=== PATIENT | male | born 1985 | race Caucasian/White ===

== ENCOUNTER 2019-02-17 08:42 | Emergency (ER) | payer MEDICAID ==
[~2019-02-17] VITALS: Ht 182.9 cm; Wt 79.4 kg
--- NOTE | 2019-02-17 08:53 | NUR ---
DR. ANDERSON AT BEDSIDE FOR EVAL.
--- NOTE | 2019-02-17 08:55 | NUR ---
RT AT BEDSIDE.
[2019-02-17] MEDS ORDERED: ALBUTEROL FS 2.5 MG/0.5 ML VIAL.NEB ONE ×2 (08:57→09:27)
[2019-02-17] MEDS ORDERED: ALBUTEROL FS 2.5 MG/0.5 ML VIAL.NEB NEB ONE ×2 (09:00→10:00)
--- NOTE | 2019-02-17 09:04 | NUR ---
PT. 33 Y OLD MALE REC. IN ER WITH HISTORY OF ASTHMA. ALERT AND RESPONSIVE, NO ALLERGIES. PLACED ON ALBUTEROL 5MG TX'S PER MD ORDER. B/S BILATERALLY WHEEZING ON UPPER LOBES, AND LOWER BASES , EQUAL CHEST RISE NOTED, NO ADVERSE REACTION NOTED, TX'S ILIANA. WELL AMBU BAG REMAIN AT THE BEDSIDE. VITAL WITHIN NORMAL LEVEL.
--- NOTE | 2019-02-17 09:59 | NUR ---
Patient discharged to home in stable condition. Written and verbal after care instructions given. Patient verbalizes understanding of instruction.
[2019-02-17 10:00] VITALS: BP 128/80
== END 2019-02-17 10:00 | disposition home or self-care (01) ==
LOC: ER 08:46
DX: J45.909 Unspecified asthma, uncomplicated (principal)

== ENCOUNTER 2019-07-06 01:08 | Emergency (ER) | payer SELFPAY ==
[~2019-07-06] VITALS: Ht 182.9 cm; Wt 77.1 kg
--- NOTE | 2019-07-06 01:10 | NUR ---
PT BIB SELF C/O SOB X3 DAYS. +DRY COUGH, -FEVER, PT IS AAOX4, NOTED RESPIRATORY DISTRESS, HOOKED TO [employer] AND O2 AT 2LPM VIA NC, KEPT RESTED AND COMFORTABLE, WILL CONTINUE TO MONITOR.
[2019-07-06] MEDS ORDERED: predniSONE 10 MG TABLET ONE (01:19)
[2019-07-06] MEDS ORDERED: predniSONE 20 MG TABLET ONE (01:19)
--- NOTE | 2019-07-06 01:20 | NUR ---
AT BEDSIDE FOR EVAL.
[2019-07-06] MEDS ORDERED: methylPREDNISolone SOD SUCC 125 MG/2ML VIAL ONE (01:24)
[2019-07-06] MEDS ORDERED: IV NS 0.9% 1,000 ML IV ONE (01:30)
[2019-07-06] MEDS ORDERED: methylPREDNISolone SOD SUCC 125 MG/2ML VIAL IV ONE (01:30)
[2019-07-06] MEDS ORDERED: ALBUTEROL FS 2.5 MG/3 ML VIAL.NEB CONTNEB ONE (01:30)
[2019-07-06] MEDS ORDERED: IPRATROPIUM NEB FS 0.5 MG/2.5 ML AMPUL.NEB NEB ONE (01:30)
--- NOTE | 2019-07-06 01:30 | NUR ---
IV LINE ESTABLISHED, BLOOD DRAWN AND SENT TO LAB.
[2019-07-06] MEDS ORDERED: ALBUTEROL FS 2.5 MG/3 ML VIAL.NEB ONE (01:34)
--- NOTE | 2019-07-06 01:35 | NUR ---
RT AT BEDSIDE FOR BREATHING TREATMENT.
[2019-07-06 03:25] VITALS: BP 118/72
--- NOTE | 2019-07-06 03:25 | NUR ---
IV removed. Catheter intact and site benign. Pressure and 4x4 applied to site. No bleeding noted. Patient discharged to home in stable condition. Written and verbal after care instructions given. Patient verbalizes understanding of instruction.
== END 2019-07-06 03:26 | disposition home or self-care (01) ==
LOC: ER 01:09
DX: J45.901 Unspecified asthma with (acute) exacerbation (principal); R06.03 Acute respiratory distress
CPT/HCPCS: 94644; 96374; 99285; J2930; J7030

== ENCOUNTER 2019-07-24 22:05 | Emergency (ER) | payer MEDICAID ==
[~2019-07-24] VITALS: Ht 182.9 cm; Wt 77.1 kg
[2019-07-24 22:05] VITALS: BP 140/67
[2019-07-24] MEDS ORDERED: ALBUTEROL FS 2.5 MG/0.5 ML VIAL.NEB ONE ×2 (22:19→23:14)
[2019-07-24] MEDS ORDERED: ALBUTEROL FS 2.5 MG/0.5 ML VIAL.NEB NEB ONE ×2 (22:30→23:30)
== END 2019-07-25 00:16 | disposition home or self-care (01) ==
LOC: ER 22:06
DX: J45.909 Unspecified asthma, uncomplicated (principal)
CPT/HCPCS: 71045-TC

== ENCOUNTER 2021-04-06 00:30 | Emergency (ER) | payer MEDICAID, OTHER ==
[~2021-04-06] VITALS: Ht 188 cm; Wt 86.2 kg
--- NOTE | 2021-04-06 00:50 | NUR ---
BIBRA 89 C/O LEFT SIDE ABD PAIN X 3 HOURS, WITH NAUSEA PT IS AA/0 X4 FACIAL GRIMACING AND RESTLESSNESS NOTED, PAIN 10/10, V/S CHECKED NAD RECORDED SPO2 98% ON ROOM AIR HOOKED TO MONITOR AND SPOX WILL CONT TO MONITOR
[2021-04-06] MEDS ORDERED: MORPHINE SULFATE INJ 4 MG/ML DISP.SYRIN ONE (01:23)
[2021-04-06] MEDS ORDERED: ONDANSETRON HCL/PF 4 MG/2 ML VIAL ONE (01:23)
--- NOTE | 2021-04-06 01:25 | NUR ---
LAB AT BED SIDE LAB DRAW DONE
[2021-04-06] MEDS ORDERED: IV NS 0.9% 1,000 ML BAG IV ONE (01:30)
[2021-04-06] MEDS ORDERED: ONDANSETRON HCL/PF 4 MG/2 ML VIAL IVP ONE (01:30)
[2021-04-06] MEDS ORDERED: MORPHINE SULFATE INJ 2 MG/ML DISP.SYRIN IV ONE (01:30)
--- NOTE | 2021-04-06 01:35 | NUR ---
PT TO CT
[2021-04-06 01:38] LABS: BASOPHILS % (AUTO) 0.3 % (0.0-2.0); EOSINOPHILS % (AUTO) 0.1 % (0.0-6.0); HEMATOCRIT 50 % (39-51); LYMPHOCYTES # (AUTO) 0.7 K/uL (0.8-4.8); LYMPHOCYTES % (AUTO) 5.3 % (20.0-44.0); MEAN CORPUSCULAR HGB CONC 34 g/dl (31.0-36.0); MEAN CORPUSCULAR VOLUME 97 fL (80-96); MONOCYTES # (AUTO) 0.3 K/uL (0.1-1.30); MONOCYTES % (AUTO) 2.5 % (2.0-12.0); NEUTROPHILS # (AUTO) 11.4 K/uL (1.8-8.9); NEUTROPHILS % (AUTO) 91.8 % (43.0-81.0); PLATELET COUNT (AUTO) 242 K/uL (150-450); RED BLOOD CELL COUNT(AUTO) 5.18 MIL/uL (4.5-6.0); WHITE BLOOD COUNT (AUTO) 12.4 K/uL (4.3-11.0)
[2021-04-06 02:14] LABS: ALBUMIN 4.3 g/dL (3.4-5.0); BILIRUBIN,DIRECT 0.2 mg/dL (0.0-0.2); BILIRUBIN,TOTAL 0.9 mg/dL (0.2-1.0); CALCIUM, SERUM 8.9 mg/dL (8.5-10.1); CREATININE 1.2 mg/dL (0.6-1.3); POTASSIUM 3.7 mmol/L (3.5-5.1); TOTAL PROTEIN, SERUM 7.9 g/dL (6.4-8.2)
[2021-04-06 05:10] LABS: BILIRUBIN,URINE NEGATIVE (NEGATIVE); COLOR,URINE YELLOW (YELLOW); LEUKOCYTE ESTERASE ,URINE NEGATIVE (NEGATIVE); NITRITE, URINE NEGATIVE (NEGATIVE); PH,URINE 7.5 (5.0-8.0); PROTEIN,URINE 30 mg/dl (NEGATIVE); UGLUCOSE NEGATIVE (NEGATIVE)
[2021-04-06 05:38] LABS: BACTERIA,URINE Rare /HPF (None Seen); SQUAMOUS EPITHELIAL CELL,UR Few /HPF (None Seen); URINE AMORPHOUS PHOSPHATES Moderate /HPF (None Seen); WBC,URINE 0-2 /HPF (0-3)
[2021-04-06] MEDS ORDERED: IBUP-1957 PO (05:38)
[2021-04-06] MEDS ORDERED: HYDR-4303 PO (05:38)
[2021-04-06 05:47] VITALS: BP 121/70
--- NOTE | 2021-04-06 05:47 | NUR ---
Patient discharged to home in stable condition. Rx and Written and verbal after care instructions given. Patient verbalizes understanding of instruction.
== END 2021-04-06 05:51 | disposition home or self-care (01) ==
LOC: ER 00:34
DX: N20.0 Calculus of kidney (principal); J45.909 Unspecified asthma, uncomplicated; Z79.1 Long term (current) use of non-steroidal anti-inflammatories (NSAID); Z79.899 Other long term (current) drug therapy
CPT/HCPCS: 36415; 74176; 80048; 80076; 81001; 83690; 85025; 96361; 96374; 96375; 99284; J2270; J2405; J7030